=== PATIENT | male | born 1980 | race African-American/Black ===

== ENCOUNTER 2017-04-08 11:05 | Observation (INO) ==
[2017-04-08] MEDS ORDERED: THIAMINE INJ 100 MG, FOLIC ACID INJ 1 MG, MAGNESIUM SULF INJ 2 GM, MULTIVITAMIN INJ 10 ... IV ONE (11:42)
[2017-04-08] MEDS ORDERED: THIAMINE 200 MG/2 ML VIAL ONE (11:59)
[2017-04-08 12:11] LABS: Basophils % 0.5 % (0.0-0.8); Eosinophils # 0.1 10*3/uL (0.0-0.87); Hematocrit 43.8 VOL% (42.0-52.0); Hemoglobin 14.9 GM/DL (14.0-18.0); Immature Granulocytes % 0.9 %; Immature Granulocytes Absolute 0.06 #; Lymphocytes # 2.1 10*3/uL (1.4-4.0); Lymphocytes % 31.4 % (21.2-54.2); Mean Corpuscular Hemoglobin 31 PG (27-34); Mean Corpuscular Volume 89.8 FL (87-102); Mean Platelet Volume 10.7 FL (9.6-12.0); Monocytes # 0.6 10*3/uL (0.11-0.8); Monocytes % 8.5 % (1.7-12.7); Neutrophils # 3.7 10*3/uL (1.4-7.4); Neutrophils % 56.7 % (38.7-73.9); Platelet Count 223 T/CUMM (130-400); Red Blood Count 4.88 MC/CUMM (3.8-5.5); Red Cell Distribution Width 13.5 % (9.3-17.3); White Blood Count 6.6 T/CUMM (4-12)
[2017-04-08 12:13] LABS: Alanine Aminotransferase 29 U/L (16-61); Alkaline Phosphatase 41 U/L (45-117); Aspartate Amino Transferase 27 U/L (0-37); Blood Urea Nitrogen 11 MG/DL (7-18); Calcium 8.7 MG/DL (8.5-10.1); Glucose 83 MG/DL (74-106); Magnesium 2.4 MG/DL (1.8-2.4); Osmolality,Calculated 280.1 MOS/KG (273-304); Sodium 142 MMOL/L (136-145); Total Protein 7.5 G/DL (6.4-8.3); Troponin I Only < 0.015 NG/ML (0.00-0.045)
[2017-04-08 13:24] LABS: Apearance,Urine CLEAR (Clear); Bilirubin,Urine Negative (Negative); Blood, Urine Small mg/dL (Negative); Glucose,Urine (UA) Negative (Negative); Ketones,Urine Negative (Negative); Mucus,Urine Occasional /LPF (Occasional); Nitrite,Urine Negative (Negative); Protein,Urine Negative; RBC,Urine <1 /HPF (0-4); Urine Color Yellow (Yellow); Urine Specific Gravity 1.018 (1.001-1.035); Urine Urobilinogen < 2.0 EU/DL (0.2-1.0); WBC,Urine 1 /HPF (0-6)
[2017-04-08 13:33] LABS: Barbiturates Screen,Urine Negative (Negative); Benzodiazepines Screen,Urine Negative (Negative); Cannabinoid Screen,Urine Positive (Negative); Opiate Screen,Urine Negative (Negative); Phencyclidine Screen,Urine Negative (Negative)
[2017-04-08] MEDS ORDERED: ACETAMINOPHEN 325 MG TABLET PO PRN (14:28)
[2017-04-08] MEDS ORDERED: ONDANSETRON 4 MG/2 ML VIAL IV PRN (14:28)
[2017-04-08] MEDS ORDERED: LORazepam 2 MG/1 ML VIAL IV PRN (14:55)
[2017-04-08] MEDS ORDERED: THIAMINE INJ 100 MG, FOLIC ACID INJ 1 MG, MULTIVITAMIN INJ 10 ML in SODIUM CHLORIDE 0.4... IV SCH (15:00)
[2017-04-08] MEDS ORDERED: FOLIC ACID 1 MG TABLET PO SCH (21:00)
[2017-04-08] MEDS: chlordiazePOXIDE 25 MG CAPSULE PO SCH (21:01)
[2017-04-08] MEDS: FOLIC ACID IV SCH (21:02)
[2017-04-08] MEDS: THIAMINE IV SCH (21:02)
[2017-04-08] MEDS: MULTIVITAMIN IV SCH (21:02)
[2017-04-08] MEDS: [UNRECOGNIZED DRUG - OTHER] IV SCH (21:02)
[2017-04-09] MEDS: FOLIC ACID IV SCH (05:01)
[2017-04-09] MEDS: THIAMINE IV SCH (05:01)
[2017-04-09] MEDS: MULTIVITAMIN IV SCH (05:01)
[2017-04-09] MEDS: [UNRECOGNIZED DRUG - OTHER] IV SCH (05:01)
[2017-04-09 06:07] LABS: Basophils % 0.3 % (0.0-0.8); Eosinophils # 0.2 10*3/uL (0.0-0.87); Eosinophils % 2.1 % (0.00-10.9); Hematocrit 39.3 VOL% (42.0-52.0); Hemoglobin 13.1 GM/DL (14.0-18.0); Immature Granulocytes % 0.4 %; Immature Granulocytes Absolute 0.03 #; Lymphocytes # 2.5 10*3/uL (1.4-4.0); Mean Corpuscular HGB Conc 33.3 GM/DL (32-36); Mean Corpuscular Hemoglobin 30 PG (27-34); Mean Corpuscular Volume 90.8 FL (87-102); Mean Platelet Volume 10.1 FL (9.6-12.0); Monocytes # 0.6 10*3/uL (0.11-0.8); Monocytes % 7.4 % (1.7-12.7); Neutrophils # 4.3 10*3/uL (1.4-7.4); Neutrophils % 56.8 % (38.7-73.9); Platelet Count 196 T/CUMM (130-400); Red Blood Count 4.33 MC/CUMM (3.8-5.5); Red Cell Distribution Width 13.7 % (9.3-17.3); White Blood Count 7.6 T/CUMM (4-12)
[2017-04-09 06:41] LABS: Calcium 8.6 MG/DL (8.5-10.1); Osmolality,Calculated 273.7 MOS/KG (273-304); Potassium 4.3 MMOL/L (3.5-5.1)
[2017-04-09] MEDS: chlordiazePOXIDE 25 MG CAPSULE PO SCH ×2 (08:54→15:25)
[2017-04-09] MEDS: levETIRAcetam 500 MG TABLET PO SCH ×2 (08:54→18:52)
[2017-04-09] MEDS ORDERED: THIAMINE 100 MG TABLET PO SCH (09:00)
[2017-04-09] MEDS ORDERED: PANTOPRAZOLE 40 MG TABLET PO SCH (09:00)
[2017-04-09 17:34] VITALS: BP 96/54
== END 2017-04-09 18:57 | disposition home or self-care (01) ==
LOC: EDUNIT# → N.EDINP 11:05 → N.ED 11:05 → N.EDINP 18:30 → N.4E 18:45
PROVIDERS: ADMIT Hospitalist; ATTEND Hospitalist

== ENCOUNTER 2018-04-14 13:58 | Observation (INO) ==
[2018-04-14] MEDS ORDERED: ORPHENADRINE 60 MG/2 ML VIAL IM STA (14:41)
[2018-04-14] MEDS ORDERED: DEXAMETHASONE 4 MG/1 ML VIAL IM STA (14:41)
[2018-04-14] MEDS ORDERED: ORPHENADRINE 60 MG/2 ML VIAL ONE (14:47)
[2018-04-14] MEDS ORDERED: DEXAMETHASONE 10 MG/1 ML VIAL ONE (14:47)
[2018-04-14] MEDS ORDERED: ONDANSETRON 4 MG/2 ML VIAL IV PRN (17:06)
[2018-04-14] MEDS ORDERED: ACETAMINOPHEN 325 MG TABLET PO PRN (17:06)
[2018-04-14 17:13] LABS: Basophils % 0.5 % (0.0-0.8); Eosinophils # 0.1 10*3/uL (0.0-0.87); Eosinophils % 1.6 % (0.00-10.9); Hematocrit 44.6 VOL% (42.0-52.0); Hemoglobin 14.3 GM/DL (14.0-18.0); Immature Granulocytes % 0.5 %; Immature Granulocytes Absolute 0.03 #; Lymphocytes # 1.7 10*3/uL (1.4-4.0); Lymphocytes % 26.1 % (21.2-54.2); Mean Corpuscular HGB Conc 32.1 GM/DL (32-36); Mean Corpuscular Hemoglobin 30 PG (27-34); Mean Corpuscular Volume 92.1 FL (87-102); Mean Platelet Volume 10.4 FL (9.6-12.0); Monocytes # 0.4 10*3/uL (0.11-0.8); Monocytes % 5.8 % (1.7-12.7); Neutrophils # 4.2 10*3/uL (1.4-7.4); Neutrophils % 65.5 % (38.7-73.9); Platelet Count 262 T/CUMM (130-400); Red Blood Count 4.84 MC/CUMM (3.8-5.5); Red Cell Distribution Width 13.8 % (9.3-17.3); White Blood Count 6.3 T/CUMM (4-12)
[2018-04-14 17:20] LABS: INR 0.9; PT Patient Result 9.5 SECS; Partial Thromboplastin Time 24.1 SECS (0-40)
[2018-04-14 17:31] LABS: Alanine Aminotransferase 33 U/L (16-61); Albumin 3.9 G/DL (3.4-5.0); Alkaline Phosphatase 56 U/L (45-117); Aspartate Amino Transferase 34 U/L (0-37); Bilirubin,Total < 0.39 MG/DL (0.2-1.0); Blood Urea Nitrogen 11 MG/DL (7-18); Glucose 76 MG/DL (74-106); Osmolality,Calculated 274.5 MOS/KG (273-304); Potassium 4.5 MMOL/L (3.5-5.1); Sodium 139 MMOL/L (136-145); Total Protein 8.2 G/DL (6.4-8.3)
[2018-04-14] MEDS: RIVAROXABAN 15 MG TABLET PO SCH (19:04)
[2018-04-14] MEDS: levETIRAcetam 500 MG TABLET PO SCH (20:08)
[2018-04-14] MEDS: LORazepam 2 MG/1 ML VIAL IV PRN ×2 (20:09→22:24)
[2018-04-14 23:07] LABS: Osmolality,Calculated 275.8 MOS/KG (273-304); Potassium 4.3 MMOL/L (3.5-5.1)
[2018-04-15 06:22] LABS: Basophils % 0.3 % (0.0-0.8); Eosinophils # 0.2 10*3/uL (0.0-0.87); Eosinophils % 1.4 % (0.00-10.9); Hematocrit 42.4 VOL% (42.0-52.0); Hemoglobin 13.5 GM/DL (14.0-18.0); Immature Granulocytes % 0.7 %; Immature Granulocytes Absolute 0.08 #; Lymphocytes # 2.4 10*3/uL (1.4-4.0); Lymphocytes % 22.4 % (21.2-54.2); Mean Corpuscular HGB Conc 31.8 GM/DL (32-36); Mean Corpuscular Hemoglobin 29 PG (27-34); Mean Corpuscular Volume 91.8 FL (87-102); Monocytes % 8.9 % (1.7-12.7); Neutrophils # 7.2 10*3/uL (1.4-7.4); Neutrophils % 66.3 % (38.7-73.9); Platelet Count 276 T/CUMM (130-400); Red Blood Count 4.62 MC/CUMM (3.8-5.5); Red Cell Distribution Width 13.7 % (9.3-17.3); White Blood Count 10.8 T/CUMM (4-12)
[2018-04-15 06:43] LABS: Calcium 9.1 MG/DL (8.5-10.1); Osmolality,Calculated 273.8 MOS/KG (273-304); Potassium 4.2 MMOL/L (3.5-5.1); Risk Ratio 1.78; Thyroid Stimulating Hormone 0.312 uIU/ml (0.358-3.74); VLDL CHOLESTEROL 13.6 MG/DL
[2018-04-15 07:41] VITALS: BP 105/57
[2018-04-15] MEDS ORDERED: THIAMINE 100 MG TABLET PO SCH (09:00)
[2018-04-15] MEDS ORDERED: FOLIC ACID 1 MG TABLET PO SCH (09:00)
[2018-04-15] MEDS ORDERED: PANTOPRAZOLE 40 MG TABLET PO SCH (09:00)
[2018-04-15] MEDS ORDERED: MULTIVITAMIN (CENTRUM) TABLET PO SCH (09:00)
[2018-04-15] MEDS: RIVAROXABAN 15 MG TABLET PO SCH (09:35)
[2018-04-15] MEDS: levETIRAcetam 500 MG TABLET PO SCH (09:35)
[2018-04-15] MEDS ORDERED: PHENYTOIN ER 100 MG CAPSULE PO SCH (21:00)
[2018-04-20 17:15] LABS: F5DNA Reviewed By SEE COMMENTS; Factor V Leiden (R506Q) Mutati Negative (Negative)
[2018-04-21 11:55] LABS: Protein C Antigen 106 % (70-150)
[2018-04-22 14:17] LABS: PTNT Reviewed By SEE COMMENTS
== END 2018-04-15 09:39 | disposition home or self-care (01) ==
LOC: N.EDINP 13:58 → N.ED 13:58 → N.EDINP 17:47 → N.5E 18:02
PROVIDERS: ADMIT Internal Medicine; ATTEND Internal Medicine

== ENCOUNTER 2019-01-19 21:28 | Observation (INO) ==
[2019-01-19] MEDS ORDERED: THIAMINE INJ 100 MG, FOLIC ACID INJ 1 MG, MAGNESIUM SULF INJ 2 GM, MULTIVITAMIN INJ 10 ... IV SCH (23:00)
[2019-01-19 23:21] LABS: Basophils % 0.2 % (0.0-0.8); Eosinophils # 0.1 10*3/uL (0.0-0.87); Hematocrit 45.7 VOL% (42.0-52.0); Hemoglobin 14.9 GM/DL (14.0-18.0); Immature Granulocytes % 0.3 %; Immature Granulocytes Absolute 0.02 #; Lymphocytes % 35.3 % (21.2-54.2); Mean Corpuscular HGB Conc 32.6 GM/DL (32-36); Mean Corpuscular Volume 90.9 FL (87-102); Mean Platelet Volume 10.7 FL (9.6-12.0); Monocytes % 5.7 % (1.7-12.7); Neutrophils % 57.5 % (38.7-73.9); Platelet Count 236 T/CUMM (130-400); Red Blood Count 5.03 MC/CUMM (3.8-5.5); Red Cell Distribution Width 13.2 % (9.3-17.3); White Blood Count 5.8 T/CUMM (4-12)
[2019-01-19 23:44] LABS: Alanine Aminotransferase 25 U/L (16-61); Albumin 3.9 G/DL (3.4-5.0); Alkaline Phosphatase 45 U/L (45-117); Aspartate Amino Transferase 22 U/L (0-37); Blood Urea Nitrogen 12 MG/DL (7-18); Calcium 9.2 MG/DL (8.5-10.1); Estimated Glom Filtration Rate 113 ML/MIN; Glucose 83 MG/DL (74-106); Total Protein 7.7 G/DL (6.4-8.3); Troponin I < 0.015 NG/ML (0.00-0.045)
[2019-01-19 23:51] LABS: Acetaminophen < 2.0 UG/ML (10-30); Phenytoin (Dilantin) < 0.5 UG/ML (10-20)
[2019-01-20 00:01] LABS: Apearance,Urine CLEAR (Clear); Glucose,Urine (UA) Negative (Negative); Ketones,Urine Negative (Negative); Protein,Urine Negative; Urine Color Yellow (Yellow); Urine Specific Gravity 1.023 (1.001-1.035)
[2019-01-20 00:02] LABS: Bilirubin,Urine Negative (Negative); Blood, Urine Negative (Negative); Hyaline Casts,Urine 3 /LPF (0-3); Mucus,Urine Occasional /LPF (Occasional); Nitrite,Urine Negative (Negative); RBC,Urine 2 /HPF (0-4); Squamous Epithelial Cell,Urine Occasional /HPF (0-10); Urine Urobilinogen < 2.0 EU/DL (0.2-1.0); WBC,Urine 1 /HPF (0-6)
[2019-01-20 00:13] LABS: Barbiturates Screen,Urine Negative (Negative); Benzodiazepines Screen,Urine Positive (Negative); Cannabinoid Screen,Urine Negative (Negative); Opiate Screen,Urine Negative (Negative); Phencyclidine Screen,Urine Negative (Negative)
[2019-01-20] MEDS ORDERED: PHENYTOIN INJ 1,000 MG in SODIUM CHLORIDE 0.9% 100 ML IV STA (00:15)
[2019-01-20] MEDS ORDERED: INFLUENZA VIRUS VACCINE 0.5 ML SYRINGE IM ONE (02:03)
[2019-01-20] MEDS ORDERED: LORazepam 2 MG/1 ML VIAL IV PRN ×2 (02:13)
[2019-01-20] MEDS ORDERED: ACETAMINOPHEN 325 MG TABLET PO PRN (02:15)
[2019-01-20] MEDS ORDERED: PROMETHAZINE 25 MG/1 ML VIAL IM PRN (02:15)
[2019-01-20] MEDS ORDERED: NICOTINE 21 MG/24 HR PATCH TRANSDERM PRN (02:15)
[2019-01-20] MEDS ORDERED: DOCUSATE SODIUM 100 MG CAPSULE PO PRN (02:15)
[2019-01-20] MEDS ORDERED: diphenhydrAMINE CAP 25 MG CAPSULE PO PRN (02:15)
[2019-01-20] MEDS ORDERED: ONDANSETRON 4 MG/2 ML VIAL IV PRN (02:15)
[2019-01-20] MEDS: SODIUM CHLORIDE 0.9% 1,000 ML IV SCH ×2 (03:24→10:31)
[2019-01-20 03:56] LABS: Basophils % 0.4 % (0.0-0.8); Eosinophils # 0.2 10*3/uL (0.0-0.87); Eosinophils % 2.9 % (0.00-10.9); Hemoglobin 14.2 GM/DL (14.0-18.0); Immature Granulocytes % 0.3 %; Immature Granulocytes Absolute 0.02 #; Lymphocytes # 3.6 10*3/uL (1.4-4.0); Lymphocytes % 50.1 % (21.2-54.2); Mean Corpuscular Volume 91.1 FL (87-102); Mean Platelet Volume 10.2 FL (9.6-12.0); Monocytes % 6.9 % (1.7-12.7); Neutrophils % 39.4 % (38.7-73.9); Platelet Count 195 T/CUMM (130-400); Red Blood Count 4.72 MC/CUMM (3.8-5.5); Red Cell Distribution Width 13.2 % (9.3-17.3); White Blood Count 7.3 T/CUMM (4-12)
[2019-01-20 04:13] LABS: Calcium 8.5 MG/DL (8.5-10.1)
[2019-01-20] MEDS: THIAMINE 100 MG TABLET PO SCH (08:31)
[2019-01-20] MEDS: FOLIC ACID 1 MG TABLET PO SCH (08:31)
[2019-01-20] MEDS: MULTIVITAMIN (CENTRUM) TABLET PO SCH (08:31)
[2019-01-20] MEDS: levETIRAcetam 500 MG TABLET PO SCH ×2 (08:31→20:37)
[2019-01-20] MEDS: ENOXAPARIN 40 MG/0.4 ML SYRINGE SUBCUT SCH (08:31)
[2019-01-20] MEDS: DOCUSATE/SENNA 50-8.6 MG TABLET PO SCH ×2 (12:48→20:37)
[2019-01-20] MEDS ORDERED: PHENYTOIN ER 100 MG CAPSULE PO SCH (21:00)
[2019-01-21] MEDS: SODIUM CHLORIDE 0.9% 1,000 ML IV SCH ×3 (02:18→14:26)
[2019-01-21 04:53] LABS: Basophils % 0.2 % (0.0-0.8); Eosinophils # 0.4 10*3/uL (0.0-0.87); Eosinophils % 4.7 % (0.00-10.9); Hematocrit 42.1 VOL% (42.0-52.0); Hemoglobin 13.8 GM/DL (14.0-18.0); Immature Granulocytes % 0.5 %; Immature Granulocytes Absolute 0.04 #; Lymphocytes % 34.9 % (21.2-54.2); Mean Corpuscular HGB Conc 32.8 GM/DL (32-36); Mean Corpuscular Volume 91.9 FL (87-102); Mean Platelet Volume 11.3 FL (9.6-12.0); Monocytes % 6.6 % (1.7-12.7); Neutrophils % 53.1 % (38.7-73.9); Platelet Count 181 T/CUMM (130-400); Red Blood Count 4.58 MC/CUMM (3.8-5.5); Red Cell Distribution Width 13.5 % (9.3-17.3); White Blood Count 8.5 T/CUMM (4-12)
[2019-01-21 05:43] LABS: Calcium 8.7 MG/DL (8.5-10.1); Osmolality,Calculated 285.7 MOS/KG (273-304)
[2019-01-21] MEDS: MULTIVITAMIN (CENTRUM) TABLET PO SCH (09:19)
[2019-01-21] MEDS: ENOXAPARIN 40 MG/0.4 ML SYRINGE SUBCUT SCH (09:19)
[2019-01-21] MEDS: FOLIC ACID 1 MG TABLET PO SCH (09:19)
[2019-01-21] MEDS: THIAMINE 100 MG TABLET PO SCH (09:19)
[2019-01-21] MEDS: levETIRAcetam 500 MG TABLET PO SCH (09:19)
[2019-01-21 13:38] VITALS: BP 126/75
[2019-01-21] MEDS: DOCUSATE/SENNA 50-8.6 MG TABLET PO SCH (14:26)
== END 2019-01-21 13:20 | disposition home or self-care (01) ==
LOC: EDBD → EDUNIT# → N.EDINP 21:28 → N.ED 21:28 → SUATTDRO 01-20 01:12 → N.ICU 01-20 01:24 → N.4E 01-20 14:00
PROVIDERS: ADMIT Family Medicine; ATTEND Internal Medicine

== ENCOUNTER 2019-05-22 19:12 | Observation (INO) ==
[2019-05-22] MEDS ORDERED: SODIUM CHLORIDE 0.9% 500 ML IV STA (19:34)
[2019-05-22] MEDS ORDERED: LORazepam 2 MG/1 ML VIAL ONE (19:48)
[2019-05-22] MEDS ORDERED: levETIRAcetam 500 MG/5 ML VIAL IV ONE (19:53)
[2019-05-22] MEDS ORDERED: LORazepam 2 MG/1 ML VIAL IV STA (20:05)
[2019-05-22 20:18] LABS: Basophils % 0.4 % (0.0-0.8); Eosinophils # 0.4 10*3/uL (0.0-0.87); Hematocrit 46.1 VOL% (42.0-52.0); Hemoglobin 15.1 GM/DL (14.0-18.0); Immature Granulocytes % 0.2 %; Immature Granulocytes Absolute 0.02 #; Lymphocytes # 2.4 10*3/uL (1.4-4.0); Lymphocytes % 28.7 % (21.2-54.2); Mean Corpuscular HGB Conc 32.8 GM/DL (32-36); Mean Corpuscular Volume 92.6 FL (87-102); Mean Platelet Volume 10.6 FL (9.6-12.0); Neutrophils % 53.7 % (38.7-73.9); Platelet Count 207 T/CUMM (130-400); Red Blood Count 4.98 MC/CUMM (3.8-5.5); Red Cell Distribution Width 13.4 % (9.3-17.3); White Blood Count 8.3 T/CUMM (4-12)
[2019-05-22 20:32] LABS: Alanine Aminotransferase 47 U/L (16-61); Albumin 3.8 G/DL (3.4-5.0); Alkaline Phosphatase 59 U/L (45-117); Aspartate Amino Transferase 27 U/L (0-37); Bilirubin,Total < 0.39 MG/DL (0.2-1.0); Blood Urea Nitrogen 11 MG/DL (7-18); Calcium 8.9 MG/DL (8.5-10.1); Estimated Glom Filtration Rate 85 ML/MIN; Glucose 88 MG/DL (74-106); Osmolality,Calculated 267.1 MOS/KG (273-304); Phenytoin (Dilantin) 31.3 UG/ML (10-20)
[2019-05-22 20:49] LABS: Apearance,Urine CLEAR (Clear); Bilirubin,Urine Negative (Negative); Blood, Urine Negative (Negative); Glucose,Urine (UA) Negative (Negative); Ketones,Urine Negative (Negative); Mucus,Urine Occasional /LPF (Occasional); Nitrite,Urine Negative (Negative); Protein,Urine Negative; Squamous Epithelial Cell,Urine Occasional /HPF (0-10); Urine Color Yellow (Yellow); Urine Specific Gravity 1.009 (1.001-1.035); Urine Urobilinogen < 2.0 EU/DL (0.2-1.0)
[2019-05-22 20:55] LABS: Barbiturates Screen,Urine Negative (Negative); Benzodiazepines Screen,Urine Negative (Negative); Cannabinoid Screen,Urine Negative (Negative); Opiate Screen,Urine Negative (Negative); Phencyclidine Screen,Urine Negative (Negative)
[2019-05-22] MEDS ORDERED: LORazepam 2 MG/1 ML VIAL IV PRN (23:02)
[2019-05-22] MEDS ORDERED: SODIUM CHLORIDE 0.9% 1,000 ML IV SCH (23:02)
[2019-05-22] MEDS ORDERED: ONDANSETRON 4 MG/2 ML VIAL IV PRN (23:02)
[2019-05-22] MEDS ORDERED: DOCUSATE SODIUM 100 MG CAPSULE PO PRN (23:02)
[2019-05-22] MEDS ORDERED: ACETAMINOPHEN 325 MG TABLET PO PRN (23:02)
[2019-05-22] MEDS ORDERED: PNEUMOCOCCAL VACCINE (23 VALENT) 0.5 ML VIAL IM ONE (23:27)
[2019-05-22] MEDS ORDERED: INFLUENZA VIRUS VACCINE 0.5 ML SYRINGE IM ONE (23:27)
[2019-05-23 06:17] LABS: Basophils % 0.4 % (0.0-0.8); Eosinophils # 0.4 10*3/uL (0.0-0.87); Eosinophils % 5.2 % (0.00-10.9); Hematocrit 44.5 VOL% (42.0-52.0); Hemoglobin 14.6 GM/DL (14.0-18.0); Immature Granulocytes % 0.3 %; Immature Granulocytes Absolute 0.02 #; Lymphocytes # 2.5 10*3/uL (1.4-4.0); Lymphocytes % 33.5 % (21.2-54.2); Mean Corpuscular HGB Conc 32.8 GM/DL (32-36); Mean Corpuscular Volume 92.9 FL (87-102); Mean Platelet Volume 10.8 FL (9.6-12.0); Monocytes % 11.5 % (1.7-12.7); Neutrophils % 49.1 % (38.7-73.9); Platelet Count 206 T/CUMM (130-400); Red Blood Count 4.79 MC/CUMM (3.8-5.5); Red Cell Distribution Width 13.3 % (9.3-17.3); White Blood Count 7.6 T/CUMM (4-12)
[2019-05-23 06:31] LABS: Calcium 8.5 MG/DL (8.5-10.1); Osmolality,Calculated 276.5 MOS/KG (273-304)
[2019-05-23 11:44] VITALS: BP 128/85
[2019-05-23] MEDS ORDERED: levETIRAcetam 500 MG TABLET PO SCH (21:00)
== END 2019-05-23 15:46 | disposition home or self-care (01) ==
LOC: EDBD → EDUNIT# → N.ED 19:12 → N.EDINP 19:12 → N.2E 22:57
PROVIDERS: ADMIT Internal Medicine; ATTEND Internal Medicine